=== PATIENT | female | born 1990 | race African-American/Black ===

== ENCOUNTER 2021-06-26 20:56 | Emergency (ER) | payer OTHER, BC ==
[~2021-06-26] VITALS: Ht 165.1 cm; Wt 54.4 kg
[2021-06-27 01:09] LABS: HEMATOCRIT 24.7 % (37.0-47.0); HEMOGLOBIN 7.5 gm/dL (12.0-15.0); MCH 18.4 pg (26.0-34.0); MCHC 30.2 g/dL (28.0-37.0); MCV 60.8 fL (80.0-100.0); PLATELET COUNT 354 thou/uL (150-400); RBC 4.06 mil/uL (4.20-5.00); WBC 3.3 thou/uL (4.0-11.0)
[2021-06-27 01:39] LABS: CALCIUM 8.9 mg/dL (8.5-10.1); CREATININE 0.6 mg/dL (0.6-1.0); POTASSIUM 3.6 mmol/L (3.5-5.1)
[2021-06-27 01:43] LABS: ALBUMIN 4.2 g/dL (3.4-5.0); TOTAL BILIRUBIN 0.3 mg/dL (0.2-1.0); TOTAL PROTEIN 7.6 g/dL (6.4-8.2)
[2021-06-27 02:00] VITALS: BP 116/68
[2021-06-27 02:59] LABS: ABSOLUTE NEUTROPHILS 1.3 thou/uL (1.4-8.2)
[2021-06-27 03:01] LABS: ANISOCYTOSIS 2+; HYPOCHROMASIA 3+; LARGE PLATELETS FEW; MICROCYTES 3+; PLATELET ESTIMATE NORMAL; POIKILOCYTOSIS 1+; POLYCHROMASIA 1+
== END 2021-06-27 02:33 | disposition home or self-care (01) ==
LOC: ER 20:56
PROVIDERS: Emergency Medicine
DX: S86.812A Strain of other muscle(s) and tendon(s) at lower leg level, left leg, initial encounter (principal); R10.11 Right upper quadrant pain; D64.9 Anemia, unspecified; V49.3XXA Car occupant (driver) (passenger) injured in unspecified nontraffic accident, initial encounter; Y93.89 Activity, other specified; Y92.89 Other specified places as the place of occurrence of the external cause; Y99.8 Other external cause status